=== PATIENT | male | born 1980 | race Caucasian/White ===

== ENCOUNTER 2017-01-02 12:05 | Emergency (ER) | payer SELFPAY ==
[2017-01-02] MEDS ORDERED: TETRACAINE HCL 0.5% OPH SOLN 2 ML OU ONE (14:01)
[2017-01-02] MEDS ORDERED: OXYCODONE-ACETAMINOPHEN 5-325 MG TABLET PO ONE ×2 (14:03→16:20)
--- NOTE | 2017-01-02 15:26 | RADIOLOGY REPORT (SQ) ---
EXAM DESCRIPTION: SHOULDER RIGHT 2 OR MORE VIEWS COMPLETED DATE/TIME: 01/02/2017 3:09 pm REASON FOR STUDY: pain, s/p fall COMPARISON: 12/30/2012 NUMBER OF VIEWS: Three views. TECHNIQUE: Internal rotation, external rotation, and Y view images acquired of the right shoulder. LIMITATIONS: None. FINDINGS: MINERALIZATION: Normal. BONES: No acute fracture or dislocation. No worrisome bone lesions. Small subchondral cyst along th e inferior glenoid a chronic abnormality. JOINTS: No dislocation. VISUALIZED LUNGS AND RIBS: No pneumothorax. No rib fracture. SOFT TISSUES: No radiopaque foreign body. OTHER: No other significant finding. IMPRESSION: No evidence of acute injury involving the right shoulder. TECHNICAL DOCUMENTATION: JOB ID: [id number] [employer]- All Rights Reserved
--- NOTE | 2017-01-02 15:42 | RADIOLOGY REPORT (SQ) ---
EXAM DESCRIPTION: ANKLE LEFT AP/LATERAL COMPLETED DATE/TIME: 01/02/2017 3:09 pm REASON FOR STUDY: pain, s/p fall COMPARISON: 05/31/2015 NUMBER OF VIEWS: Three views. TECHNIQUE: AP, lateral, and oblique radiographic images acquired of the left ankle. LIMITATIONS: None. FINDINGS: MINERALIZATION: Normal. BONES: No acute fracture or dislocation. No worrisome bone lesions. Postoperative changes with fusi on of the ankle joint. 3 lag screws are present. JOINTS: No effusions. Mild degenerative changes involving the midfoot. SOFT TISSUES: No soft tissue swelling. No foreign body. OTHER: No other significant finding. IMPRESSION: Postoperative changes without evidence of acute injury. TECHNICAL DOCUMENTATION: JOB ID: [id number] [employer]- All Rights Reserved
--- NOTE | 2017-01-02 15:48 | ER Document Report ---
ED General - General Chief Complaint: Eye Pain Stated Complaint: FALL BODY PAIN/EYE IRRITATION Time Seen by Provider: 01/02/17 13:24 Notes: patient is a 36-year-old male who presents with multiple complaints. Chief complaint is bilateral eye pain, redness, blurry vision 2 weeks. Patient states this was sudden onset 2 weeks ago but feels been worse over the past couple of days. Patient admits to history of iritis. Patient does not wear contacts. States that his left eye is worse in his right back. He is very sensitive to light. States that his left eye that his peripheral vision is intact but with central vision loss. His right eye he states his vision is intact but very blurry. Patient states that the last time he followed up with a lab animal technician was about 3 years ago. Patient denies any associated nausea or vomiting, admits to headache. Denies any drainage. Secondary complaint today is a fall that he suffered on Sunday. Patient states that he has a history of a left ankle fusion from fracture was done in 2010 and 2013. Patient states that as he was walking down his porch stairs he slept and fell landing on his right shoulder. Patient admits to pain in his right shoulder worse with movement. Denies any pain radiating down into his hands. Full range of motion guarding. Also admits to pain in his left ankle and back with spasms, denies UI, SI, SA. Past medical history significant for chronic pain of the left ankle that he goes to pain management for. Takes 15 mg of oxycodone 3 times daily for chronic pain of his left ankle. TRAVEL OUTSIDE OF THE [place] IN LAST 30 DAYS: No - Related Data Allergies/Adverse Reactions: hydromorphone HCl [From Dilaudid] Adverse Reaction (Intermediate, Verified 01/02 12:28) Past Medical History - Social History Smoking Status: Current Every Day Smoker Chew tobacco use (# tins/day): No Frequency of alcohol use: Occasional Drug Abuse: None Family History: Reviewed & Not Pertinent Patient has suicidal ideation: No Patient has homicidal ideation: No - Past Medical History Cardiac Medical History: Reports: Hx Hypertension Neurological Medical History: Reports: Hx Migraine Renal/ Medical History: Denies: Hx Peritoneal Dialysis Musculoskeltal Medical History: Reports Hx Arthritis Past Surgical History: Reports: Hx Orthopedic Surgery - Left Ankle - Immunizations Hx Diphtheria, Pertussis, Tetanus Vaccination: Yes Review of Systems - Review of Systems Constitutional: No symptoms reported EENT: See HPI Cardiovascular: No symptoms reported Respiratory: No symptoms reported Gastrointestinal: No symptoms reported Musculoskeletal: See HPI -: Yes All other systems reviewed and negative Physical Exam - Vital signs Vitals: Temp Pulse Resp BP Pulse Ox 97.5 F 92 22 H 176/91 H 99 01/02/17 12:32 01/02/17 12:32 01/02/17 12:32 01/02/17 12:32 01/02/17 12:32 - HEENT Head: Normocephalic, Atraumatic Eyes: No: Periorbital ecchymosis, Periorbital edema Conjunctiva: Injected. No: Purulent discharge Cornea: No: Corneal abrasion, Corneal ulcer, Dendrite, Embedded foreign body, Flourescein stain uptake, Superficial foreign body Extraocular movements intact: Yes Eyelashes: Normal Pupils: Fixed, Pinpoint Corrective lenses worn: No Right intraocular pressure: 25, 22 Left intraocular pressure: 27, 22 Lids everted for exam: bilateral: Normal Anterior chamber: Normal, Other - no hypopyon. No: Hyphema Fundascopic: Normal Nerve palsy: No Visual rosales normal: Yes Visual field diagram: 1 - central vision - Respiratory Respiratory status: No respiratory distress Chest status: Nontender Breath sounds: Normal Chest palpation: Normal - Cardiovascular Rhythm: Regular Heart sounds: Normal auscultation Pulses: Normal: Radial, Dorsalis pedis Normal capillary refill: Yes - Back Back: Normal, Tender. No: Deformity/step-off, CVA tenderness, Vertebra tenderness, Scars, Scoliosis, Wounds - Extremities General upper extremity: Normal inspection, Tender - over the anterior of the glenohumeral joint, Normal color, Normal ROM, Normal strength, Normal temperature Ankle: Nontender, Limited ROM - left ankle 2/2 fusion. No: Abrasion, Deformity , Ecchymosis, Edema, Instability, Laceration, Positive Carbajal's test, Unable to bear weight Course - Re-evaluation Re-evalutation: 01/02/17 16:03 Is a 36-year-old male who presents emergency department with complaints. Evaluation of his eye complaint shows the patient likely has return of iritis. Consultation to recommend following up with him tomorrow to get him initiated on steroids. Dr. Wang recommended starting the patient on Polytrim and subsequent painful in the department and is stable for discharge home. Patient is agreeable to plan to follow-up with Dr. Wang tomorrow morning at 8 AM. Regarding patient's fall. No evidence of shoulder injury on x-ray, acute findings on ankle x-ray. Patient able to ambulate and bear weight without any difficulty. Patient responded well to Flexeril for back spasms. Will send patient home on Flexeril for his back spasms but can follow-up with pain management. Otherwise the patient is stable for discharge home. - Vital Signs Vital signs: Temp Pulse Resp BP Pulse Ox 98.4 F 69 18 147/91 H 96 01/02/17 16:48 01/02/17 16:48 01/02/17 16:48 01/02/17 16:48 01/02/17 16:48 - Diagnostic Test Radiology reviewed: Image reviewed, Reports reviewed - Consults Dr. Edy Wang Time consulted: 14:03 Reason for consultation: 01/02/17 16:03 ? consult for possible iritis Consulted provider: follow-up in office Discharge - Discharge Clinical Impression: Iritis, Shoulder pain, Ankle pain, chronic Condition: Good Disposition: HOME, SELF-CARE Instructions: Iritis ([facility]), Muscle Strain ([facility]), Ice Packs ([facility]) Prescriptions: Cyclobenzaprine HCl [Flexeril 10 mg Tablet] 10 mg PO TIDP PRN #15 tab PRN Reason: Ketorolac Tromethamine [Acular Ls] 1 drop OU BID #5 ml Forms: Elevated Blood Pressure, Return to Work Referrals: EDY WANG MD [ACTIVE STAFF] - Follow up tomorrow (At 8AM)
[2017-01-02] MEDS ORDERED: CYCLOBENZAPRINE HCL 10 MG TABLET PO ONE (16:00)
[2017-01-02] MEDS ORDERED: POLYMYXIN B SULFATE/TMP OPH SOLN 10 ML OU SCH (16:15)
[2017-01-02 16:48] VITALS: BP 147/91
[2017-01-02] MEDS ORDERED: KETOROLAC TROMETHAMINE 0.45% 4 DROP/0.4 ML DROPERETTE OU SCH (18:00)
== END 2017-01-02 16:48 | disposition home or self-care (01) ==
LOC: ER 12:05
DX: H20.9 Unspecified iridocyclitis (principal); H57.13 Ocular pain, bilateral; M25.511 Pain in right shoulder; W10.9XXA Fall (on) (from) unspecified stairs and steps, initial encounter; R51 Headache; R25.2 Cramp and spasm; M25.572 Pain in left ankle and joints of left foot; G89.29 Other chronic pain; Z79.891 Long term (current) use of opiate analgesic; Z98.1 Arthrodesis status; F17.200 Nicotine dependence, unspecified, uncomplicated; I10 Essential (primary) hypertension
CPT/HCPCS: 99283; 73600; 73030; J3490

== ENCOUNTER 2018-02-06 16:41 | Emergency (ER) | payer OTHER, MEDICAID ==
[2018-02-06] MEDS ORDERED: MORPHINE SULFATE 10 MG/ML INJ IV ONE (17:44)
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
--- NOTE | 2018-02-06 18:16 | RADIOLOGY REPORT (SQ) ---
EXAM DESCRIPTION: ANKLE LEFT COMPLETE COMPLETED DATE/TIME: 02/06/2018 6:02 pm REASON FOR STUDY: injury COMPARISON: 01/02/2017 NUMBER OF VIEWS: Three views. TECHNIQUE: AP, lateral, and oblique radiographic images acquired of the left ankle. LIMITATIONS: None. FINDINGS: MINERALIZATION: Normal. BONES: Stable postsurgical changes about the distal tibia/fibula. No evidence of acute abnormality. JOINTS: Tibiotalar fusion. SOFT TISSUES: No soft tissue swelling. No foreign body. OTHER: No other significant finding. IMPRESSION: Stable chronic findings. No acute abnormalities. TECHNICAL DOCUMENTATION: JOB ID: [id number] [employer]- All Rights Reserved Reading location - IP/workstation name: [email or web address]
[2018-02-06 19:03] LABS: ABSOLUTE EOSINOPHILS # (AUTO) 0.1 10^3/uL (0.0-0.6); ABSOLUTE LYMPHOCYTES (AUTO) 1.8 10^3/uL (0.5-4.7); ABSOLUTE MONOCYTES (AUTO) 0.4 10^3/uL (0.1-1.4); ABSOLUTE NEUT (AUTO) 3.5 10^3/uL (1.7-8.2); BASOPHILS % (AUTO) 0.4 % (0-2); EOSINOPHILS % (AUTO) 2.1 % (0-6); HEMATOCRIT 43.8 % (37.9-51.0); HEMOGLOBIN 15.3 g/dL (13.5-17.0); LYMPHOCYTES % (AUTO) 31.1 % (13-45); MEAN CORPUSCULAR HEMOGLOBIN 30.3 pg (27.0-33.4); MEAN CORPUSCULAR HGB CONC 34.9 g/dL (32.0-36.0); MEAN CORPUSCULAR VOLUME 87 fl (80-97); PLATELET COUNT 232 10^3/uL (150-450); RED BLOOD COUNT 5.04 10^6/uL (4.35-5.55); RED CELL DISTRIBUTION WIDTH 13.2 % (11.5-14.0); SEGMENTED NEUTROPHILS % (AUTO) 60.4 % (42-78); TOTAL CELLS COUNTED % (AUTO) 100 %; WHITE BLOOD COUNT 5.8 10^3/uL (4.0-10.5)
[2018-02-06 19:21] LABS: ALANINE AMINOTRANSFERASE 37 U/L (21-72); ALBUMIN 4.1 g/dL (3.5-5.0); ALKALINE PHOSPHATASE 53 U/L (38-126); ANION GAP 13 (5-19); ASPARTATE AMINO TRANSFERASE 22 U/L (17-59); BILIRUBIN,DIRECT 0.2 mg/dL (0.0-0.4); BILIRUBIN,TOTAL 0.7 mg/dL (0.2-1.3); BLOOD UREA NITROGEN 8 mg/dL (7-20); CALCIUM 9.9 mg/dL (8.4-10.2); CARBON DIOXIDE 29 mmol/L (22-30); CHLORIDE 105 mmol/L (98-107); GLUCOSE 103 mg/dL (75-110); POTASSIUM 3.4 mmol/L (3.6-5.0); SODIUM 146.6 mmol/L (137-145); TOTAL PROTEIN 7.2 g/dL (6.3-8.2)
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
[2018-02-06 20:42] VITALS: BP 161/91
== END 2018-02-06 20:42 | disposition home or self-care (01) ==
LOC: ER 16:41
DX: S93.409A Sprain of unspecified ligament of unspecified ankle, initial encounter (principal); S80.812A Abrasion, left lower leg, initial encounter; M25.572 Pain in left ankle and joints of left foot; R10.11 Right upper quadrant pain; R10.12 Left upper quadrant pain; R10.816 Epigastric abdominal tenderness; R10.811 Right upper quadrant abdominal tenderness; R10.812 Left upper quadrant abdominal tenderness; M54.5 Low back pain; V03.90XA Pedestrian on foot injured in collision with car, pick-up truck or van, unspecified whether traffic or nontraffic accident, initial encounter; Y93.89 Activity, other specified; I10 Essential (primary) hypertension; Z98.890 Other specified postprocedural states
CPT/HCPCS: 99284; 96374; 36415; 85025; 80053; 73610; 74177; L1902; J2270

== ENCOUNTER 2018-09-30 22:13 | Emergency (ER) | payer MEDICAID ==
[2018-10-01] MEDS ORDERED: CEFTRIAXONE 1 GM/D5W RTU 1 GM/50 ML RTUPB IV ONE (03:04)
[2018-10-01] MEDS ORDERED: NORMAL SALINE 500 ML IV ONE (03:04)
[2018-10-01] MEDS ORDERED: VANCOMYCIN HCL INJ 1000 MG VIAL IV ONE (03:04)
[2018-10-01] MEDS ORDERED: MORPHINE SULFATE 10 MG/ML INJ IV ONE (03:04)
[2018-10-01] MEDS ORDERED: NORMAL SALINE 1000 ML 1,000 ML IV ONE (03:06)
[2018-10-01 04:02] LABS: ABSOLUTE EOSINOPHILS # (AUTO) 0.2 10^3/uL (0.0-0.6); ABSOLUTE MONOCYTES (AUTO) 0.7 10^3/uL (0.1-1.4); ABSOLUTE NEUT (AUTO) 4.1 10^3/uL (1.7-8.2); BASOPHILS % (AUTO) 0.4 % (0-2); EOSINOPHILS % (AUTO) 2.2 % (0-6); HEMATOCRIT 35.3 % (37.9-51.0); HEMOGLOBIN 12.3 g/dL (13.5-17.0); LYMPHOCYTES % (AUTO) 28.9 % (13-45); MEAN CORPUSCULAR HEMOGLOBIN 31.5 pg (27.0-33.4); MEAN CORPUSCULAR HGB CONC 34.9 g/dL (32.0-36.0); MEAN CORPUSCULAR VOLUME 91 fl (80-97); MONOCYTES % (AUTO) 9.7 % (3-13); PLATELET COUNT 244 10^3/uL (150-450); RED CELL DISTRIBUTION WIDTH 14.2 % (11.5-14.0); SEGMENTED NEUTROPHILS % (AUTO) 58.8 % (42-78); TOTAL CELLS COUNTED % (AUTO) 100 %; WHITE BLOOD COUNT 6.9 10^3/uL (4.0-10.5)
--- NOTE | 2018-10-01 04:07 | ER Document Report ---
ED General - General Chief Complaint: Arm Problem Stated Complaint: RIGHT ARM SWELLING,REDNESS Time Seen by Provider: 10/01/18 02:59 Notes: Patient is a pleasant 37-year-old male presents with complaint of pain and swelling over the medial aspect of the right arm. He first noticed infected hair follicle there several days ago. He popped it. Since then he has had spreading redness and swelling. No fevers. No vomiting. Is not diabetic. He does not use IV drugs. No other complaints at this time. TRAVEL OUTSIDE OF THE [place] IN LAST 30 DAYS: No - Related Data Allergies/Adverse Reactions: hydromorphone HCl [From Dilaudid] Adverse Reaction (Intermediate, Verified 01/14 11/30 16:43) Past Medical History - Social History Smoking Status: Never Smoker Frequency of alcohol use: None Drug Abuse: None Family History: Reviewed & Not Pertinent - Past Medical History Cardiac Medical History: Reports: Hx Hypertension Neurological Medical History: Reports: Hx Migraine Renal/ Medical History: Denies: Hx Peritoneal Dialysis Musculoskeletal Medical History: Reports Hx Arthritis Past Surgical History: Reports: Hx Orthopedic Surgery - Left Ankle - Immunizations Hx Diphtheria, Pertussis, Tetanus Vaccination: Yes Review of Systems - Review of Systems Notes: My Normal Review Basic REVIEW OF SYSTEMS: CONSTITUTIONAL : Denies fever, chills, or sweats. Denies recent illness. RESPIRATORY: Denies cough, cold, or chest congestion. Denies shortness of breath, difficulty breathing, or wheezing. GASTROINTESTINAL: Denies abdominal pain. Denies nausea, vomiting, or diarrhea. MUSCULOSKELETAL: Abscess over right arm. SKIN: Localized cellulitis on right arm. HEMATOLOGIC : Denies easy bruising or bleeding. LYMPHATIC: Denies swollen, enlarged glands. ALL OTHER SYSTEMS REVIEWED AND NEGATIVE. Physical Exam - Vital signs Vitals: Temp Pulse Resp BP Pulse Ox 98.3 F 89 16 146/75 H 99 09/30/18 22:53 09/30/18 22:53 09/30/18 22:53 09/30/18 22:53 09/30/18 22:53 - Notes Notes: General Appearance: Well nourished, alert, cooperative, no acute distress, moderate obvious discomfort. Vitals: reviewed, See vital signs table. Head: no swelling or tenderness to the head Eyes: PERRL, EOMI, Conjuctiva clear Mouth: No decreasd moisture Throat: No tonsillar inflammation, No airway obstruction, No lymphadenopathy Neck: Supple, no neck tenderness, No thyromegaly Lungs: No wheezing, No rales, No rhonci, No accessory muscle use, good air exchange bilaterally. Heart: Normal rate, Regular rythm, No murmur, no rub Abdomen: Normal BS, soft, No rigidity, No abdominal tenderness, No guarding, no rebound, no abdominal masses, no organomegaly Extremities: strength 5/5 in all extremities, good pulses in all extremities, area of redness and fluctuation in the medial aspect of the right arm near the antecubital region. Some pain that radiates up the medial aspect of the arm itself. No crepitance to palpation. Skin: warm, dry, appropriate color, no rash Neuro: speech clear, oriented x 3, normal affect, responds appropriately to questions. Course - Re-evaluation Re-evalutation: 10/01/18 05:59 Patient has no leukocytosis or fever. He does have substantial abscess which I did get a CT scan to make sure that the abscess was just localized to the medial aspect of the elbow. I then went forward with incision and drainage of the abscess. Patient did tolerate this well. Packing was placed. Iodoform gauze placed over the wound. Sterile dressing applied. Patient informed that he must return in 24 hours we can reassess the wound. I informed to come back to ER immediately if he has fevers, spreading redness or swelling, or if he feels that he is worsening in any way. Patient agrees with plan and will be discharged home. Patient does have previous history of IV drug abuse many years ago. Patient says he has not used IV drugs in many years. I believe this patient has no track lara or any signs of IV drug abuse on exam. Patient is on chronic pain management and takes oxycodone 10 mg tablets. He informed me of this and says he does not any pain medicine to go home with. Dictation of this chart was performed using voice recognition software; therefore, there may be some unintended grammatical errors. 10/01/18 06:00 - Vital Signs Vital signs: Temp Pulse Resp BP Pulse Ox 98.3 F 89 16 146/75 H 99 09/30/18 22:53 09/30/18 22:53 09/30/18 22:53 09/30/18 22:53 09/30/18 22:53 - Laboratory Result Diagrams: 10/01/18 03:50 10/01/18 03:50 Laboratory results interpreted by me: 10/01/18 10/01/18 03:50 03:50 RBC 3.90 L Hgb 12.3 L Hct 35.3 L RDW 14.2 H Potassium 3.3 L Glucose 188 H Procedures - Incision and Drainage Right Arm Type: Simple Anesthetic type: 1% Lidocaine mL's of anesthetic: 3 Blade size: 11 I&D procedure: Chlorprep applied Incision Method: Incision made by scalpel Amount/type of drainage: approximately 5-7 mls of purulent drainage. Notes: 10/01/18 05:57 After incision and drainage wound was thoroughly irrigated with saline. Wound then packed with half-inch iodoform gauze. Prior to me incising the wound I did look at his arm and the abscess with ultrasound to confirm any location of vascular structures and also to confirm the largest pocket of purulence. Patient had full neuro function of his hand after incision. No signs of vascular injury post incision. Patient does have a very small amount of venous oozing after incision and no further bleeding. Discharge - Discharge Clinical Impression: Abscess Condition: Good Disposition: HOME, SELF-CARE Additional Instructions: I have incised and drained the abscess in your right arm. We have given you a dose of antibiotics thru the IV. I will prescribe further antibiotics that you will take over the course of a week. Because of the size of the abscess it is very important that you return to the ER in 24 hours so that we can reevaluate your arm to make sure it is continuing to heal and do well. Please have a low threshold to return to the ER immediately if you have increasing swelling, fevers, spreading redness, or if you feel that you are worsening in any way. The antibiotic I am prescribing is called doxycycline. Doxycycline will make your skin more sensitive to the sun so please make sure you keep your skin covered or wear sunscreen whenever out in the sun. After reevaluation here in 24 hours you can change the dressing at least once a day. He can clean the wound with soap and water. Prescriptions: Doxycycline Hyclate 100 mg PO BID #14 capsule Forms: Return to Work
[2018-10-01 04:16] LABS: ANION GAP 13 (5-19); BLOOD UREA NITROGEN 10 mg/dL (7-20); CALCIUM 8.5 mg/dL (8.4-10.2); CARBON DIOXIDE 22 mmol/L (22-30); CHLORIDE 102 mmol/L (98-107); GLUCOSE 188 mg/dL (75-110); POTASSIUM 3.3 mmol/L (3.6-5.0)
--- NOTE | 2018-10-01 04:54 | RADIOLOGY REPORT (SQ) ---
EXAM DESCRIPTION: CT UPPER EXTREMITY WITH IV CONTRAST COMPLETED DATE/TME: 10/01/2018 03:05 CLINICAL HISTORY: 37 years, Male, abscess right antecubital region COMPARISON: None. TECHNIQUE: Contiguous axial CT images of the right upper extremity were obtained. Sagittal and coronal reformats were reviewed. This exam was performed according to our departmental dose-optimization program, which includes automated exposure control, adjustment of the mA and/or kV according to patient size and/or use of iterative reconstruction technique. FINDINGS: Peripheral enhancing bilobed fluid collection in the antecubital fossa measuring approximately 2.8 x 1.8 cm. There is adjacent inflammatory fat stranding and mild overlying skin thickening. Minimal prominence of the olecranon bursa is noted. Diffuse soft tissue edema throughout the right arm. Vascular structures are unremarkable. No acute fractures. IMPRESSION: Findings consistent with abscess within the soft tissues of the antecubital fossa.
[2018-10-01] MEDS ORDERED: MORPHINE SULFATE 10 MG/ML INJ ONE (05:12)
[2018-10-01 06:53] VITALS: BP 147/87
== END 2018-10-01 07:58 | disposition home or self-care (01) ==
LOC: ER 22:13
DX: L02.413 Cutaneous abscess of right upper limb (principal)
CPT/HCPCS: 96376; 99284; 96361; 96375; 96365; 36415; 87070; 87205; 85025; 80048; 73201; 10060; J2270; J7030; J3370; J0696; 87077

== ENCOUNTER 2018-10-02 11:55 | Emergency (ER) | payer MEDICAID ==
--- NOTE | 2018-10-02 12:37 | ER Document Report ---
ED Medical Screen (RME) - General Chief Complaint: Arm Pain Stated Complaint: ARM PAIN Time Seen by Provider: 10/02/18 12:34 Notes: 37-year-old male patient had incision and drainage of an abscess in the elbow region 2 days ago. He returns today for recheck complaining of increased swelling and pain. He has swelling of the entire right upper extremity, he does have a bandage around the incision region. I have greeted and performed a rapid initial assessment of this patient. A comprehensive ED assessment and evaluation of the patient, analysis of test results and completion of the medical decision making process will be conducted by additional ED providers. TRAVEL OUTSIDE OF THE [place] IN LAST 30 DAYS: No - Related Data Allergies/Adverse Reactions: hydromorphone HCl [From Dilaudid] Adverse Reaction (Intermediate, Verified 10/02/18 11:58) Past Medical History - Past Medical History Cardiac Medical History: Reports: Hx Hypertension Neurological Medical History: Reports: Hx Migraine Renal/ Medical History: Denies: Hx Peritoneal Dialysis Musculoskeltal Medical History: Reports Hx Arthritis Past Surgical History: Reports: Hx Orthopedic Surgery - Left Ankle - Immunizations Hx Diphtheria, Pertussis, Tetanus Vaccination: Yes Physical Exam - Vital signs Vitals: Temp Pulse Resp BP Pulse Ox 98.1 F 87 16 148/93 H 100 10/02/18 12:02 10/02/18 12:02 10/02/18 12:02 10/02/18 12:02 10/02/18 12:02 Course - Vital Signs Vital signs: Temp Pulse Resp BP Pulse Ox 98.1 F 87 16 148/93 H 100 10/02/18 12:02 10/02/18 12:02 10/02/18 12:02 10/02/18 12:02 10/02/18 12:02
[2018-10-02 13:11] LABS: ABSOLUTE EOSINOPHILS # (AUTO) 0.1 10^3/uL (0.0-0.6); ABSOLUTE LYMPHOCYTES (AUTO) 1.2 10^3/uL (0.5-4.7); ABSOLUTE MONOCYTES (AUTO) 0.4 10^3/uL (0.1-1.4); BASOPHILS % (AUTO) 0.4 % (0-2); EOSINOPHILS % (AUTO) 1.2 % (0-6); HEMATOCRIT 42.9 % (37.9-51.0); LYMPHOCYTES % (AUTO) 17.5 % (13-45); MEAN CORPUSCULAR HEMOGLOBIN 31.5 pg (27.0-33.4); MEAN CORPUSCULAR HGB CONC 35.2 g/dL (32.0-36.0); MEAN CORPUSCULAR VOLUME 90 fl (80-97); MONOCYTES % (AUTO) 6.5 % (3-13); PLATELET COUNT 288 10^3/uL (150-450); RED BLOOD COUNT 4.79 10^6/uL (4.35-5.55); RED CELL DISTRIBUTION WIDTH 14.1 % (11.5-14.0); SEGMENTED NEUTROPHILS % (AUTO) 74.4 % (42-78); TOTAL CELLS COUNTED % (AUTO) 100 %; WHITE BLOOD COUNT 6.7 10^3/uL (4.0-10.5)
[2018-10-02 13:13] LABS: HEMOGLOBIN 15.1 g/dL (13.5-17.0)
[2018-10-02 13:26] LABS: ALANINE AMINOTRANSFERASE 24 U/L (21-72); ALBUMIN 4.1 g/dL (3.5-5.0); ALKALINE PHOSPHATASE 66 U/L (38-126); ANION GAP 9 (5-19); ASPARTATE AMINO TRANSFERASE 15 U/L (17-59); BILIRUBIN,DIRECT 0.3 mg/dL (0.0-0.4); BLOOD UREA NITROGEN 5 mg/dL (7-20); CALCIUM 9.7 mg/dL (8.4-10.2); CARBON DIOXIDE 29 mmol/L (22-30); CHLORIDE 102 mmol/L (98-107); GLUCOSE 100 mg/dL (75-110); POTASSIUM 3.9 mmol/L (3.6-5.0); SODIUM 140.2 mmol/L (137-145); TOTAL PROTEIN 7.9 g/dL (6.3-8.2)
[2018-10-02] MEDS ORDERED: DOXYCYCLINE HYCLATE 100 MG TABLET PO ONE (13:50)
--- NOTE | 2018-10-02 14:27 | ER Document Report ---
HPI - HPI Patient complains to provider of: arm infection Time Seen by Provider: 10/02/18 12:34 Onset: Last week Onset/Duration: Persistent Quality of pain: Achy Pain Level: 2 Context: Patient presents complaining of an abscess to the right arm for the past week. Patient states that he was here 2 days ago for this complaint although had an incision and drainage procedure performed early yesterday morning. Patient was advised to return today for a wound recheck. Patient states that he is not gotten the antibiotic filled or started it yet. Patient denies any fever although does report some chills. Associated Symptoms: Chills, Other - Right arm pain. denies: Fever Exacerbated by: Movement Relieved by: Denies Similar symptoms previously: No Recently seen / treated by doctor: Yes - ROS ROS below otherwise negative: Yes Systems Reviewed and Negative: Yes All other systems reviewed and negative - CONSTITUTIONAL Constitutional: REPORTS: Chills. DENIES: Fever - NEURO Neurology: DENIES: Headache, Weakness - CARDIOVASCULAR Cardiovascular: DENIES: Chest pain - GASTROINTESTINAL Gastrointestinal: DENIES: Nausea, Patient vomiting - REPRODUCTIVE Reproductive: DENIES: : - MUSCULOSKELETAL Musculoskeletal: REPORTS: Extremity pain, Swelling - DERM Skin Color: Normal Notes: Abscess to right arm Past Medical History - General Information source: Patient - Social History Smoking Status: Current Every Day Smoker Chew tobacco use (# tins/day): No Frequency of alcohol use: None Drug Abuse: None, Other - History of IV drug use over 2 years ago Lives with: Family Family History: Reviewed & Not Pertinent Patient has suicidal ideation: No Patient has homicidal ideation: No - Past Medical History Cardiac Medical History: Reports: Hx Hypertension Neurological Medical History: Reports: Hx Migraine Renal/ Medical History: Denies: Hx Peritoneal Dialysis Musculoskeletal Medical History: Reports Hx Arthritis Past Surgical History: Reports: Hx Orthopedic Surgery - Left Ankle - Immunizations Hx Diphtheria, Pertussis, Tetanus Vaccination: Yes Vertical Provider Document - CONSTITUTIONAL Agree With Documented VS: Yes Exam Limitations: No Limitations General Appearance: WD/WN, No Apparent Distress - INFECTION CONTROL TRAVEL OUTSIDE OF THE [place] IN LAST 30 DAYS: No - HEENT HEENT: Atraumatic, Normocephalic - NECK Neck: Normal Inspection, Supple - RESPIRATORY Respiratory: Breath Sounds Normal, No Respiratory Distress - CARDIOVASCULAR Cardiovascular: Regular Rate, Regular Rhythm Pulses: Normal: Radial - BACK Back: Normal Inspection - MUSCULOSKELETAL/EXTREMETIES Musculoskeletal/Extremeties: ARIANE BARTLETT - NEURO Level of Consciousness: Awake, Alert, Appropriate Motor/Sensory: No Motor Deficit - DERM Integumentary: Warm, Dry, Abscess - Packing was removed from abscess to right antecubital area, wound started to spontaneously drain purulent drainage. Patient able to move right arm through full range of motion with removal of dressing. No concern for septic arthritis at this time. No lymphangitis. Patient does have localized induration surrounding abscess. Course - Re-evaluation Re-evalutation: 10/02/18 14:[address] Jake Marie guarditorey patient presentation and management. Recommends irrigating wound as it is already spontaneously draining and giving patient a dose of his antibiotic and encouraging him to get medicine filled and take as prescribed. 10/02/18 14:24 Patient's wound was cleansed and irrigated. Patient states that he was squeezing on the area and had significant amount of drainage additionally from the wound after the provider had left. Patient advised of importance of keeping area clean and dressed. Patient encouraged to get antibiotic filled and take as ordered. Patient states that the antibiotic is waiting for him at the pharmacy to be picked up. Patient advised that he should return tomorrow for repeat wound check. Patient advised to return immediately for any worsening of symptoms plan of care. No concern for joint involvement. Patient with full range of motion to right upper extremity. Stable vital signs without any leukocytosis. - Vital Signs Vital signs: Temp Pulse Resp BP Pulse Ox 98.1 F 87 16 148/93 H 100 10/02/18 12:02 10/02/18 12:02 10/02/18 12:02 10/02/18 12:02 10/02/18 12:02 - Laboratory Result Diagrams: 10/02/18 12:54 10/02/18 12:54 Laboratory results interpreted by me: 10/02/18 10/02/18 12:54 12:54 RDW 14.1 H BUN 5 L AST 15 L Discharge - Discharge Clinical Impression: Encounter for wound re-check, Abscess Condition: Stable Disposition: HOME, SELF-CARE Instructions: Abscess ([facility]), Doxycycline ([facility]) Additional Instructions: Return immediately for any new or worsening symptoms Followup with your primary care provider, call tomorrow to make a followup appointment Keep wound clean and covered Return tomorrow for repeat examination Get doxycycline filled and take tonight as ordered. Referrals: [facility] [Provider Group] - Follow up tomorrow
[2018-10-02 14:41] VITALS: BP 150/87
== END 2018-10-02 14:30 | disposition home or self-care (01) ==
LOC: ER 11:55
DX: L02.413 Cutaneous abscess of right upper limb (principal); M79.601 Pain in right arm; F17.200 Nicotine dependence, unspecified, uncomplicated; I10 Essential (primary) hypertension
CPT/HCPCS: 99283; 36415; 87040; 85025; 80053; J3490

== ENCOUNTER 2019-11-15 00:41 | Emergency (ER) | payer SELFPAY ==
[2019-11-15] MEDS ORDERED: NALOXONE HCL INJ/PF 0.4 MG/1 ML SDV IV PRN (01:07)
--- NOTE | 2019-11-15 01:16 | ER Document Report ---
ED General - General TRAVEL OUTSIDE OF THE [place] 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 Patient received intranasal Narcan x2 prior to arrival. He was sleepy but easily arousable upon arrival here. Patient says he has no intent to use heroin again and is not interested in detox referral. He reports chronic pain of his mid lower back and also says that he has chronic pain in his left ankle secondary to prior fusion surgery. He is followed at [facility] and they are treating him with Percocet 10 tablets. He denies other medications at this time. He reports allergy to hydromorphone which she says causes severe skin rash. (KESHAV LINDSAY) - Related Data Allergies/Adverse Reactions: hydromorphone HCl [From Dilaudid] Adverse Reaction (Intermediate, Verified 11/15/19 11:42) Past Medical History - General Information source: Patient, Emergency Med Personnel, [facility] Records - Social History Smoking Status: Current Every Day Smoker Drug Abuse: Heroin Occupation: Construction Lives with: Family Family History: Reviewed & Not Pertinent - Past Medical History Cardiac Medical History: Reports: Hx Hypertension Neurological Medical History: Reports: Hx Migraine Renal/ Medical History: Denies: Hx Peritoneal Dialysis Musculoskeletal Medical History: Reports Hx Arthritis Past Surgical History: Reports: Hx Orthopedic Surgery - Left Ankle - Immunizations Hx Diphtheria, Pertussis, Tetanus Vaccination: Yes <KESHAV LINDSAY - Last Filed: 11/15/19 02:31> Review of Systems <KESHAV LINDSAY - Last Filed: 11/15/19 02:31> - Review of Systems Notes: Constitutional: Negative for fever. HENT: Negative for sore throat. Eyes: Negative for visual changes. Cardiovascular: Negative for chest pain. Respiratory: Negative for shortness of breath. Gastrointestinal: Negative for abdominal pain, vomiting or diarrhea. Genitourinary: Negative for dysuria. Musculoskeletal: As per HPI. Skin: Negative for rash. Neurological: Negative for headaches, weakness or numbness. 10 point ROS negative except as marked above and in HPI. (KESHAV LINDSAY) Physical Exam <KESHAV LINDSAY - Last Filed: 11/15/19 02:31> - Vital signs Vitals: Temp 98.5 F 11/15/19 00:50 - Notes Notes: GENERAL: Middle-age male who is sleepy but arousable. SKIN: Good turgor no rashes. HEAD: Normocephalic atraumatic. EYES: Pinpoint pupils equal and sluggishly reactive to light. EOMI. Conjunctivae and sclerae clear. EARS: CANALS AND TMS CLEAR. NOSE: CLEAR. MOUTH: Moist mucosa. Fair dentition. No stridor or edema. No drooling. NECK: Supple. No masses or thyromegaly. No adenopathy. Carotids 2+ without bruits. No JVD. BACK: Symmetrical without tenderness. CHEST: Respirations unlabored. Breath sounds clear and symmetrical. HEART: Regular rhythm. No murmur gallop or rub. ABDOMEN: Soft nontender without masses, organomegaly or rebound. Bowel sounds normally active. No bruits. GENITALIA: Deferred. EXTREMITIES: Extensive needle tracks both upper extremities. No edema. No calf tenderness. Cap refill less than 1.5 seconds. Dorsalis pedis and posterior tibial pulses 3+ and symmetrical. NEUROLOGICAL: GCS 14. Sleepy but oriented x3. Slurred speech. Cranial nerves II through XII intact. Sensorimotor and cerebellar normal. (KESHAV LINDSAY) Course - Laboratory Result Diagrams: 11/15/19 01:05 11/15/19 01:05 <KESHAV LINDSAY - Last Filed: 11/15/19 02:31> - Laboratory Result Diagrams: 11/15/19 01:05 11/15/19 01:05 <MARISA BRANTLEY - Last Filed: 11/15/19 14:38> - Laboratory Result Diagrams: 11/15/19 01:05 11/15/19 01:05 <JUN WILL - Last Filed: 11/15/19 14:46> - Re-evaluation Re-evalutation: 11/15/19 01:18 We will maintain the patient on continuous cardiac monitoring administer Narcan as necessary. Pending studies include EKG, chest x-ray, CBC, comprehensive metabolic profile, blood alcohol, urinalysis and urine drug screen. 11/15/19 02:31 Potassium is low at 3.1 with a normal magnesium. He is getting some supplemental potassium and IV normal saline. He still somnolent but easily arousable. Plan at this time is to allow him to sleep in emergency department and we will get a consultation from the behavioral medicine service. Further care of the patient is turned over to Dr. Elias Ramos at 0232 hrs. (KESHAV LINDSAY) - Vital Signs Vital signs: Temp Pulse Resp BP Pulse Ox 98.5 F 89 17 116/71 97 11/15/19 00:54 11/15/19 00:54 11/15/19 14:01 11/15/19 14:01 11/15/19 14:01 - Laboratory Laboratory results interpreted by me: 11/15/19 11/15/19 01:05 01:05 RBC 4.26 L Hct 37.7 L MCHC 36.1 H Potassium 3.1 L Carbon Dioxide 31 H Glucose 132 H Total Bilirubin 1.6 H - EKG Interpretation by Me Additional EKG results interpreted by me: 11/15/19 01:45 Twelve-lead EKG from 0107 hrs. reviewed contemporaneously by me demonstrating no rmal sinus rhythm with a rate of 84 and a QRS axis of +27 degrees. Intervals are normal. There is no acute ST-T wave change. (KESHAV LINDSAY) Discharge <KESHAV LINDSAY - Last Filed: 11/15/19 02:31> <MARISA BRANTLEY - Last Filed: 11/15/19 14:38> <JUN WILL - Last Filed: 11/15/19 14:46> - Discharge Clinical Impression: Hypokalemia Accidental heroin overdose Qualifiers: Encounter type: initial encounter Qualified Code(s): T40.1X1A - Poisoning by heroin, accidental (unintentional), initial encounter Condition: Stable Disposition: HOME, SELF-CARE Additional Instructions: You have been evaluated by both medical and behavioral health teams for accidental overdose and have been deemed appropriate for discharge. While in the emergency department you received the following services: Medical screening and assessment, nursing services, dietary services, pharmacological services, one-on-one counseling and/or psychotherapy, environmental services, and continuous observation by a patient analysis or research safety inspector. At this time you have declined assistance for voluntary detox. You have been provided a resource list of detox facilities and mobile crisis contact information. You are highly encouraged to seek substance abuse treatment. NARCOTIC / OPIOD ABUSE: Narcotics and opiods are pain-relieving drugs that are often abused. They are addicting. Narcotics cause euphoria, but it often takes increasing amounts to "feel good" and avoid withdrawal symptoms. Overdose of narcotics causes small pupils, coma, and decreased breathing. It's a common cause of . Purity of street narcotics is unpredictable. Injection of narcotics is risky for abscesses, endocarditis (heart infection), pneumonia, and AIDS. Withdrawal from narcotics causes goose bumps, watery mouth, sweating, nasal congestion, muscle aches, abdominal cramps, vomiting, and diarrhea. There's often restlessness and confusion. Treatment programs are available, but you must make the decision to quit. Medication (such as clonidine) can be prescribed to control the symptoms of withdrawal. OVERDOSE / INGESTION: You have taken more medication than you should have. After your evaluation and care, it is felt that your overdose is not likely to be harmful or of any significant consequences to you and you are being discharged. In the future, you should be careful not to take more medications than what is prescribed for you. Although your overdose does not seem to be of any danger to you at this time, if you develop any unusual or unexpected symptoms after your discharge, you should return to the Emergency Department immediately for re-evaluation. INSTRUCTIONS FOR HOME CARE FOLLOWING DRUG OVERDOSAGE: The doctor feels it's safe for you to go home. You will need to be observed. If charcoal and a laxative was given to you, expect some loose black stools soon. Take no medications unless approved by a physician, including alcohol. If drowsy, lie on your stomach or side for sleeping to avoid aspiration if vomiting occurs. Take only liquids by mouth until there is no more nausea. FOR THE OBSERVER: Observe the patient for the next 24 hours and call or go to the hospital if any of the following are noted: prolonged or repeated vomiting, difficulty in arousing, convulsions (seizures or fits), fever, persistent cough, breathing that is too slow or too rapid, or confused or bizarre behavior. If a counselling visit has been arranged, make sure the patient attends. Call the physician or poison control if you have questions. FOLLOW-UP CARE: If you have been referred to a physician for follow-up care, call the physicians office for an appointment as you were instructed or within the next two days. If you experience worsening or a significant change in your symptoms, notify the physician immediately or return to the Emergency Department at any time for re-evaluation. Referrals: [facility] [Outside] - Follow up as needed
[2019-11-15 01:17] LABS: ABSOLUTE EOSINOPHILS # (AUTO) 0.1 10^3/uL (0.0-0.6); ABSOLUTE LYMPHOCYTES (AUTO) 1.3 10^3/uL (0.5-4.7); ABSOLUTE MONOCYTES (AUTO) 0.6 10^3/uL (0.1-1.4); ABSOLUTE NEUT (AUTO) 3.6 10^3/uL (1.7-8.2); BASOPHILS % (AUTO) 0.3 % (0-2); EOSINOPHILS % (AUTO) 2.3 % (0-6); HEMATOCRIT 37.7 % (37.9-51.0); HEMOGLOBIN 13.6 g/dL (13.5-17.0); LYMPHOCYTES % (AUTO) 22.6 % (13-45); MEAN CORPUSCULAR HGB CONC 36.1 g/dL (32.0-36.0); MEAN CORPUSCULAR VOLUME 89 fl (80-97); MONOCYTES % (AUTO) 10.5 % (3-13); PLATELET COUNT 174 10^3/uL (150-450); RED BLOOD COUNT 4.26 10^6/uL (4.35-5.55); RED CELL DISTRIBUTION WIDTH 13.8 % (11.5-14.0); SEGMENTED NEUTROPHILS % (AUTO) 64.3 % (42-78); TOTAL CELLS COUNTED % (AUTO) 100 %; WHITE BLOOD COUNT 5.6 10^3/uL (4.0-10.5)
[2019-11-15 01:36] LABS: ALBUMIN 4.4 g/dL (3.5-5.0); ALCOHOL < 10 mg/dL (NONE DETECTED); ALKALINE PHOSPHATASE 56 U/L (38-126); ANION GAP 7 (5-19); ASPARTATE AMINO TRANSFERASE 48 U/L (17-59); BILIRUBIN,TOTAL 1.6 mg/dL (0.2-1.3); BLOOD UREA NITROGEN 14 mg/dL (7-20); CALCIUM 9.2 mg/dL (8.4-10.2); CARBON DIOXIDE 31 mmol/L (22-30); CHLORIDE 102 mmol/L (98-107); GLUCOSE 132 mg/dL (75-110); POTASSIUM 3.1 mmol/L (3.6-5.0); TOTAL PROTEIN 7.6 g/dL (6.3-8.2)
[2019-11-15] MEDS ORDERED: NORMAL SALINE 1000 ML 1,000 ML IV ONE (01:38)
--- NOTE | 2019-11-15 01:40 | RADIOLOGY REPORT (SQ) ---
AP Portable chest: 11/15/2019 12:38 AM CDT History: 38-year old patient with altered mental status. Comparison: None available Findings: The cardiomediastinal silhouette is normal in size. No pneumothorax is seen. No acute airspace opacities are seen. No discrete pleural effusion is apparent. Impression: No acute airspace opacities are seen.
[2019-11-15] MEDS: POTASSI CL 20 MEQ/50 ML RIDER 20 MEQ/50 ML RTUPB IV SCH ×2 (01:50→03:42)
--- NOTE | 2019-11-15 09:26 | EKG REPORT ---
SEVERITY:- NORMAL ECG - SINUS RHYTHM : Confirmed by: Yaquelin Quijano MD 15-Nov-2019 09:25:19
[2019-11-15 14:33] VITALS: BP 116/71
--- NOTE | 2019-11-15 15:05 | PSYCHOLOGICAL NOTE ---
Psych Note - Psych Note Date seen by psych provider: 11/15/19 Time seen by psych provider: 12:45 - 1st attempt 1440 evaluation Psych Note: Reason for Consult: Accidental overdose Patient reports he shot up heroin last night to "try it...I was not trying to harm myself, I just wanted to see what it was like to try it...Now I have and I didn't like it...It is like alcohol, I don't like alcohol either but I had to try that to know if I liked it or not." He reports he is not interested in detox but will take resources. He [place]. He again declines assistance but thanks clinician for time. Patient is alert and orientated to person, place, time and circumstance. Mood is slightly irritable (patient was upset about being asked to urinate in urinal) but overall euthymic with congruent affect with clinician. Patient denies suicidal and homicidal ideation. Delusions are absent and behavior is congruent with an intact reality based presentation i.e. organized and linear thought process. Eye contact is fair. Conversational speech is overall within normal rate, tone and prosody however is noted at times to be short and irritable with other [facility] ED staff. Intellectual abilities appeared within the average range. Attention and concentration is fair. Insight, judgment, impulse control is fair to poor in connection with his substance abuse. Patient presents slightly un kempt however there is no notable body odor and his hair looks recently washed. Patient's jansen is long but clean and free of knots. Accidental overdose Substance abuse Impression\\plan: Patient is cleared from acute psychiatric services. He declines assistance in detox but is willing to take resource information. Patient presents irritable with [facility] staff however was very polite and engaged ap propriately with clinician. He identifies being upset after being asked to urinate in a urinal because he wanted to use the restroom. Clinician notes there was some concern on the patient's balance which was why he was asked to use a urinal. Patient reports she has no problem providing a urine sample he would just like to use the restroom. At this time the patient is unwilling to discuss substance abuse treatment however [place] Patient was highly encouraged to follow-up with substance abuse treatment and was provided detox facility resource information including mobile crisis contact information. Dr. De Leon was consulted and the care management of this patient; attending physicians in agreement with recommendations and disposition.
== END 2019-11-15 14:50 | disposition home or self-care (01) ==
LOC: ER 00:41
DX: T40.1X1A Poisoning by heroin, accidental (unintentional), initial encounter (principal); E87.6 Hypokalemia; G89.4 Chronic pain syndrome; M54.5 Low back pain; Z79.899 Other long term (current) drug therapy; Z98.890 Other specified postprocedural states; Z88.8 Allergy status to other drugs, medicaments and biological substances; F17.200 Nicotine dependence, unspecified, uncomplicated
CPT/HCPCS: 93005; 99285; 96361; 96365; 96366; 36415; 80307; 83735; 85025; 80053; 71045; 93010; J3480; J7030

== ENCOUNTER 2020-01-19 21:48 | Emergency (ER) | payer SELFPAY ==
[2020-01-19] MEDS ORDERED: OXYCODONE-ACETAMINOPHEN 5-325 MG TABLET PO ONE (22:53)
--- NOTE | 2020-01-19 22:56 | ER Document Report ---
ED Medical Screen (RME) - General Stated Complaint: POSSIBLE INSECT BITE ON BACK Time Seen by Provider: 01/19/20 22:50 Mode of Arrival: Ambulatory Information source: Patient Notes: Patient is a 39-year-old male presenting to the emergency department concern for abscess to his back. Patient reports he thinks he was bitten by a spider on Sunday which was 2 days ago. He reports it has gotten larger and more painf ul. He does have a history of abscesses and has had to have them drained in the past. He denies any fevers at home. Area of erythema with induration noted to right thoracic region. This is tender with palpation. Vital signs rechecked in triage, heart rate continues to be at 117, oral temp is gone up to 100.7. I have greeted and performed a rapid initial assessment of this patient. A comprehensive ED assessment and evaluation of the patient, analysis of test results and completion of the medical decision making process will be conducted by additional ED providers. I have specifically instructed the patient or family members with the patient to immediately return to any nursing staff should anything change in the patient's condition or with their chief complaint. TRAVEL OUTSIDE OF THE [place] IN LAST 30 DAYS: No - Related Data Allergies/Adverse Reactions: hydromorphone HCl [From Dilaudid] Adverse Reaction (Intermediate, Verified 11/15/19 11:42) Past Medical History - Past Medical History Cardiac Medical History: Reports: Hx Hypertension Neurological Medical History: Reports: Hx Migraine Renal/ Medical History: Denies: Hx Peritoneal Dialysis Musculoskeltal Medical History: Reports Hx Arthritis Past Surgical History: Reports: Hx Orthopedic Surgery - Left Ankle - Immunizations Hx Diphtheria, Pertussis, Tetanus Vaccination: Yes Physical Exam - Vital signs Vitals: Temp Pulse Resp BP Pulse Ox 100.0 F 117 H 18 174/104 H 100 01/19/20 22:18 01/19/20 22:18 01/19/20 22:18 01/19/20 22:18 01/19/20 22:18 Course - Vital Signs Vital signs: Temp Pulse Resp BP Pulse Ox 100.0 F 117 H 18 174/104 H 100 01/19/20 22:18 01/19/20 22:18 01/19/20 22:18 01/19/20 22:18 01/19/20 22:18
[2020-01-19 23:40] LABS: ABSOLUTE EOSINOPHILS # (AUTO) 0.1 10^3/uL (0.0-0.6); ABSOLUTE LYMPHOCYTES (AUTO) 1.2 10^3/uL (0.5-4.7); ABSOLUTE MONOCYTES (AUTO) 0.6 10^3/uL (0.1-1.4); ABSOLUTE NEUT (AUTO) 9.3 10^3/uL (1.7-8.2); BASOPHILS % (AUTO) 0.3 % (0-2); EOSINOPHILS % (AUTO) 0.5 % (0-6); HEMATOCRIT 42.6 % (37.9-51.0); HEMOGLOBIN 14.8 g/dL (13.5-17.0); LYMPHOCYTES % (AUTO) 10.4 % (13-45); MEAN CORPUSCULAR HEMOGLOBIN 31.4 pg (27.0-33.4); MEAN CORPUSCULAR HGB CONC 34.8 g/dL (32.0-36.0); MEAN CORPUSCULAR VOLUME 90 fl (80-97); MONOCYTES % (AUTO) 5.8 % (3-13); PLATELET COUNT 249 10^3/uL (150-450); RED BLOOD COUNT 4.72 10^6/uL (4.35-5.55); RED CELL DISTRIBUTION WIDTH 13.1 % (11.5-14.0); TOTAL CELLS COUNTED % (AUTO) 100 %; WHITE BLOOD COUNT 11.2 10^3/uL (4.0-10.5)
[2020-01-19 23:57] LABS: ALBUMIN 4.7 g/dL (3.5-5.0); ALKALINE PHOSPHATASE 50 U/L (38-126); ANION GAP 7 (5-19); ASPARTATE AMINO TRANSFERASE 21 U/L (17-59); BILIRUBIN,TOTAL 1.3 mg/dL (0.2-1.3); BLOOD UREA NITROGEN 10 mg/dL (7-20); CALCIUM 10.1 mg/dL (8.4-10.2); CARBON DIOXIDE 28 mmol/L (22-30); CHLORIDE 101 mmol/L (98-107); GLUCOSE 111 mg/dL (75-110); POTASSIUM 4.6 mmol/L (3.6-5.0); TOTAL PROTEIN 8.3 g/dL (6.3-8.2)
[2020-01-20] MEDS ORDERED: IBUPROFEN 600 MG TABLET PO ONE (01:38)
[2020-01-20] MEDS ORDERED: OXYCODONE HCL IR 5 MG TABLET PO ONE (01:38)
[2020-01-20 01:45] VITALS: BP 146/91
[2020-01-20] MEDS ORDERED: MORPHINE SULFATE 10 MG/ML INJ IM ONE (01:49)
[2020-01-20] MEDS ORDERED: SULFAMETHOXAZOLE/TRIMETHOPRIM 800-160 MG TABLET PO ONE (01:49)
[2020-01-20] MEDS ORDERED: CEFTRIAXONE INJ 1000 MG VIAL IM ONE (01:49)
[2020-01-20] MEDS ORDERED: HYDROCODONE/ACETAMINOPHEN 5-325 MG (6 TAB/ER DISP) PO PRN (01:53)
--- NOTE | 2020-01-20 01:55 | ER Document Report ---
ED Skin Rash/Insect Bite/Abscs - General Chief Complaint: Insect Bite Stated Complaint: POSSIBLE INSECT BITE ON BACK Time Seen by Provider: 01/19/20 22:50 Primary Care Provider: BRADFORD LOUIS PA-C [Primary Care Provider] - Follow up in 3-5 days Mode of Arrival: Ambulatory Notes: Patient is a 39-year-old male that comes emergency department for chief complaint of approximately 2 days of worsening symptoms of pain, redness, swelling to his right mid back area. He states he was outside in the pool when he felt a bite, he did not see the insect but he believes he was bitten at that time. He states since that time the area has become tender, red, swollen. He denies itching, he denies any other areas of pain or swelling. He was noted to have a low-grade fever here in the emergency department. 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 He denies chest pain, shortness of breath, headache, abdominal pain, vomiting, back pain, or any other complaints. TRAVEL OUTSIDE OF THE [place] IN LAST 30 DAYS: No - Related Data Allergies/Adverse Reactions: hydromorphone HCl [From Dilaudid] Adverse Reaction (Intermediate, Verified 11/15/19 11:42) Home Medications: adderal, pain med, bp med-hasn't taken recently Past Medical History - General Information source: Patient - Social History Smoking Status: Current Every Day Smoker Family History: Reviewed & Not Pertinent Patient has homicidal ideation: No - Past Medical History Cardiac Medical History: Reports: Hx Hypertension Neurological Medical History: Reports: Hx Migraine Renal/ Medical History: Denies: Hx Peritoneal Dialysis Musculoskeletal Medical History: Reports Hx Arthritis Past Surgical History: Reports: Hx Orthopedic Surgery - Left Ankle - Immunizations Hx Diphtheria, Pertussis, Tetanus Vaccination: Yes Review of Systems - Review of Systems Constitutional: See HPI EENT: No symptoms reported Cardiovascular: No symptoms reported Respiratory: No symptoms reported Gastrointestinal: No symptoms reported Genitourinary: No symptoms reported Male Genitourinary: No symptoms reported Musculoskeletal: No symptoms reported Skin: See HPI Hematologic/Lymphatic: No symptoms reported Neurological/Psychological: No symptoms reported Physical Exam - Vital signs Vitals: Temp Pulse Resp BP Pulse Ox 100.0 F 117 H 18 174/104 H 100 01/19/20 22:18 01/19/20 22:18 01/19/20 22:18 01/19/20 22:18 01/19/20 22:18 - Notes Notes: GENERAL: Alert, interacts well. No acute distress. HEAD: Normocephalic, atraumatic. EYES: Pupils equal, round, and reactive to light. Extraocular movements intact. ENT: Oral mucosa moist, tongue midline. Oropharynx unremarkable. Airway patent. NECK: Full range of motion. Supple. Trachea midline. No lymphadenopathy. LUNGS: Clear to auscultation bilaterally, no wheezes, rales, or rhonchi. No respiratory distress. Non-tender chest wall. HEART: Regular rate and rhythm. No murmur ABDOMEN: Soft, non-tender. Non-distended. Bowel sounds present in all 4 quadrants. EXTREMITIES: Moves all 4 extremities spontaneously. No edema, normal radial and dorsalis pedis pulses bilaterally. No cyanosis. BACK: no cervical, thoracic, lumbar midline tenderness. No saddle anesthesia, normal distal neurovascular exam. Moves all extremities in full range of motion. NEUROLOGICAL: Alert and oriented x3. Normal speech. Cranial nerves II through XII grossly intact. Strength 5/5 in all extremities. PSYCH: Normal affect, normal mood. SKIN: Right mid back with an almost square area of erythema and tenderness but there is no swelling, induration, or fluctuance. No streaking away from the area. Skin exam otherwise unremarkable. Course - Re-evaluation Re-evalutation: Patient has an area on the right mid back that is consistent with cellulitis with erythema and tenderness. There is no induration or fluctuance noted, patient has been squeezing the area and has only expressed small amount of clear fluid and small amount of blood, this was repeated on my exam. There is no streaking away from the area. Patient does have a low-grade fever and was initially tachycardic, this was rechecked and on my exam he is not tachycardic. CBC and chemistry are unremarkable except for mild leukocytosis without bandemia. Blood cultures have been placed especially given patient's history of drug abuse. However patient has no other complaints including chest pain, shortness of breath, abdominal pain. The infection source does appear to be the cellulitis. Patient is very well-appearing. Patient was given Rocephin, Bactrim, he will be placed on oral antibiotics at first and he will return if he worsens in any way which was discussed at length with patient and significant other. They state appreciation and agreement with plan. Stable and well- appearing at time of discharge. - Vital Signs Vital signs: Temp Pulse Resp BP Pulse Ox 98.5 F 105 H 20 146/91 H 100 01/20/20 02:20 01/20/20 02:20 01/20/20 02:20 01/20/20 02:20 01/20/20 02:20 - Laboratory Result Diagrams: 01/19/20 23:20 01/19/20 23:20 Laboratory results interpreted by me: 01/19/20 01/19/20 23:20 23:20 WBC 11.2 H Lymph % (Auto) 10.4 L Absolute Neuts (auto) 9.3 H Seg Neutrophils % 83.0 H Sodium 136.2 L Glucose 111 H Total Protein 8.3 H Discharge - Discharge Clinical Impression: Cellulitis Qualifiers: Site of cellulitis: unspecified site Qualified Code(s): L03.90 - Cellulitis, unspecified Fever Qualifiers: Fever type: unspecified Qualified Code(s): R50.9 - Fever, unspecified Condition: Stable Disposition: HOME, SELF-CARE Additional Instructions: Your evaluation is consistent with a skin infection called cellulitis. Complete the antibiotics as prescribed, keep the area clean, keep a clean dressing over the area. Follow-up with primary care closely for recheck. Return if you worsen including if the area starts to spread, spiking fevers, severe worsening pain, vomiting, or any other concerning or worsening symptoms. Prescriptions: Sulfamethoxazole/Trimethoprim [Bactrim Ds Tablet] 1 each PO BID #14 tablet Cephalexin Monohydrate [Keflex 500 mg Capsule] 500 mg PO QID #28 capsule Forms: Return to Work Referrals: BRADFORD LOUIS PA-C [Primary Care Provider] - Follow up in 3-5 days
[2020-01-20] MEDS ORDERED: LIDOCAINE 1% INJ-PF (10 MG/ML) 30 ML SDV ONE (01:58)
== END 2020-01-20 02:20 | disposition home or self-care (01) ==
LOC: ER 21:48
DX: L03.90 Cellulitis, unspecified (principal); R50.9 Fever, unspecified; R00.0 Tachycardia, unspecified; W57.XXXA Bitten or stung by nonvenomous insect and other nonvenomous arthropods, initial encounter; F17.200 Nicotine dependence, unspecified, uncomplicated; Z88.8 Allergy status to other drugs, medicaments and biological substances; Z79.899 Other long term (current) drug therapy; I10 Essential (primary) hypertension
CPT/HCPCS: 99281; 96372; 36415; 87040; 85025; 80053; J3490; J0696